=== PATIENT | female | born 1990 | race Caucasian/White ===

== ENCOUNTER 2022-08-01 21:15 | Emergency (ER) | payer OTHER, SELFPAY ==
--- NOTE | ~2022-08-01 | XR_ITS ---
EXAMINATION: XR chest 1V portable Exam Date/Time: 08/01/2022 21:35 CDT HISTORY: dyspnea AND MID TO LEFT CP X 1 HOUR/PT AND SHIELDED Comparison: 06/09/2005. RESULT: Lines, tubes, and devices: None. Lungs and pleura: Clear. Cardiomediastinal silhouette: Stable. Other: No acute osseous or upper abdominal finding. IMPRESSION: No acute cardiopulmonary process. Reviewed, dictated and finalized at location K.
[2022-08-01 21:17] VITALS: BP 127/67; PULSE 80; TEMP 36.6; O2SAT 100
--- NOTE | 2022-08-01 21:29 | ECG_ITS ---
Measurements Intervals [place] Rate: 76 P: 70 ID: 165 QRS: 60 QRSD: 93 T: 44 QT: 388 QTc: 438 Interpretive Statements SINUS RHYTHM BASELINE ARTIFACT- I, II, III, AVR, AVL, AVF, V1 NORMAL ECG NO PREVIOUS ECG AVAILABLE FOR COMPARISON Electronically Signed On 08-02-2022 6:48:21 CDT by Rome Rodriguez D.O.
[2022-08-01 21:34] VITALS: BP 127/67; PULSE 80; RESP 20; TEMP 36.6; O2SAT 100
--- NOTE | 2022-08-01 21:34 | ED.GENADULT ---
HPI - General Adult General Chief complaint: Shortness of Breath/Dyspnea Stated complaint: SOB History of Present Illness HPI narrative: Joseline is a 31 with a PMH of anxiety, depression and hypothyroidism that presented to the ED chest pain that started earlier today. It started when she was lying down and is worse with a deep breath. She has had a cough for a couple weeks and is always nauseated. However, there has been no vomiting, syncope or fevers. Related Data Home Medications Medication Instructions Recorded Confirmed [id number] 3-fat com #1 27 1 cap PO DAILY 08/01/22 08/01/22 mg-1 mg-300 mg capsule fluoxetine 40 mg capsule 40 mg PO DAILY 08/01/22 08/01/22 levothyroxine 150 mcg tablet 150 mcg PO DAILY 08/01/22 08/01/22 (Synthroid) loratadine 10 mg tablet (Claritin) 10 mg PO DAILY 08/01/22 08/01/22 Allergies Allergy/AdvReac Type Severity Reaction Status Date / Time No Known Drug Allergies Allergy Mild Unknown Verified 08/01/22 21:27 Review of Systems Review of Systems: All systems reviewed & are unremarkable except as noted in HPI and below PMFSH Past Medical History Medical History (Updated 08/01/22 @ 22:24 by Lazaro Sapp DO) Anxiety Surgical History Surgical History Hx of section x2 Family History Family History Father Family history of thyroid disease Hypertension Mother Depression Sibling Family history of diabetes mellitus in first degree relative Other Diabetes mellitus Social History Social History Smoking status: Never smoker Alcohol intake: never Exam Const: General: healthy appearing and no acute distress Nutritional Appearance: well nourished Orientation/consciousness: patient oriented x3 Limitations: no limitations HENMT: Head: normal to inspection Ears: external ears normal Face/Nose/Sinus: Normal external nose present Mouth: Yes Normal oral and palatal mucosa present Eyes: Conjunctivae: conjunctivae normal Pupils: Equal, round and reactive pupils present EOM: EOMs intact bilaterally Neck: Neck: normal visual inspection Chest: Chest palpation & inspection: normal inspection of the chest Resp: Effort & Inspection: normal respiratory effort Auscultation: clear to auscultation bilaterally Cardio: Rate: regular rate Rhythm: regular rhythm GI: Inspection: distended Skin: General skin exam: normal color Neuro: General: patient oriented x3 and moves all extremities Cranial nerves: Yes Nystagmus not present Extrem: General: normal to inspection Psych: Mental Status: mental status grossly normal Course Course Emergency Course: Ordered EKG, CXR and labs as well EKG showed NSR with a rate of 76, normal axis, no ectopy or ST elevation/depression EXAMINATION:? XR chest 1V portable Exam Date/Time:? 08/01/2022 21:35 CDT HISTORY: dyspnea AND MID TO LEFT CP X 1 HOUR/PT AND SHIELDED ? Comparison:? 06/09/2005. RESULT: Lines, tubes, and devices:? None. Lungs and pleura:? Clear. Cardiomediastinal silhouette:? Stable. Other:? No acute osseous or upper abdominal finding. IMPRESSION: No acute cardiopulmonary process. Labs largely unremarkable Vital Signs Vital signs: Vital Signs Temperature 97.8 F 08/01/22 21:17 Pulse Rate 80 08/01/22 21:17 Blood Pressure 127/67 08/01/22 21:17 Pulse Oximetry 100 08/01/22 21:17 Oxygen Delivery Room Air 08/01/22 21:17 Temperature 97.8 F 08/01/22 21:34 Pulse Rate 86 08/01/22 22:01 Respiratory Rate 18 08/01/22 22:01 Blood Pressure 125/72 08/01/22 22:01 Pulse Oximetry 100 08/01/22 22:01 Oxygen Delivery Room Air 08/01/22 22:01 Medical Decision Making Vital Signs Vital Signs: Vital Signs Temperature 97.8 F 08/01/22 21:17 Pulse Rate 80 08/01/22 21:17
[2022-08-01 21:42] VITALS: O2SAT 100
[2022-08-01 21:49] LABS: Basophils Absolute Auto 0.04 K/mm3 (0.00-0.10); Basophils Percent Auto 0.4 % (0.0-1.0); Eosinophils Percent Auto 2.8 % (1.0-6.0); Hemoglobin 10.9 g/dL (12.0-15.0); Immature Granulocyte Absolute 0.04 K/mm3 (0.00-0.00); Immature Granulocyte Percent A 0.4 % (0.0-0.0); Lymphocytes Percent Auto 16.9 % (18.0-42.0); Mean Corpuscular Hemoglobin 31.1 pg (27.0-31.0); Mean Corpuscular Volume 94.3 fL (78.0-102.0); Monocytes Absolute Auto 0.69 K/mm3 (0.10-0.90); Monocytes Percent Auto 6.5 % (2.0-11.0); Neutrophils Absolute Auto 7.8 K/mm3 (1.7-7.2); Platelet Count Result 242 K/mm3 (150-420); Red Cell Distribution Width 12.6 % (11.6-14.4); White Blood Count 10.7 K/mm3 (4.8-10.8)
[2022-08-01 21:51] VITALS: BP 111/68; PULSE 83; RESP 17; O2SAT 100
--- NOTE | 2022-08-01 21:51 | PC.NURSE ---
HIV consent form completed - MD Eve[place] informed and additional lab work ordered.
[2022-08-01 22:01] VITALS: BP 125/72; PULSE 86; RESP 18; O2SAT 100
[2022-08-01] MEDS: ACETAMINOPHEN 500 MG TABLET 1000 MG PO (22:05)
[2022-08-01] MEDS: hydrOXYzine HCL 25 MG TABLET 50 MG PO (22:06)
[2022-08-01 22:12] LABS: Alanine Aminotransferase 18 U/L (14-59); Albumin Level 2.7 g/dL (3.4-5.0); Alkaline Phosphatase 75 U/L (46-116); Anion Gap 8 mmol/L (8-16); Aspartate Amino Transferase 13 U/L (15-37); Bilirubin,Total 0.2 mg/dL (0.00-1.00); Blood Urea Nitrogen 12 mg/dL (7-18); Calcium 8.6 mg/dL (8.5-10.1); Carbon Dioxide 28 mmol/L (21-32); Chloride 103 mmol/L (98-108); Estimated CRCL calculation 148 ml/min; Estimated Glomerular Filt Rate > 60; Glucose 98 mg/dL (70-99); NT Pro B Type Natriuretic Pept 103 pg/mL (0-125); Osmolality Calculated 287 mOsm/kg (285-295); Potassium 3.5 mmol/L (3.5-5.1); Sodium 139 mmol/L (136-145); Total Protein 6.8 g/dL (6.4-8.2); Troponin I 5.1 ng/L (0.00-60.4)
[2022-08-01 22:15] LABS: HIV 1 P24 AG Negative (Negative); HIV 1/2 AB Negative (Negative)
[2022-08-01 22:33] VITALS: BP 103/65; PULSE 77; RESP 17; TEMP 36.6; O2SAT 99
== END 2022-08-01 22:40 | disposition home or self-care (01) ==
PROVIDERS: Emergency Provider Family Medicine
DX: R07.81 Pleurodynia (principal)
CPT/HCPCS: 36415; 71045; 80053; 83880; 84484; 85025; 86703; 93005; 99284; A9270

== ENCOUNTER 2022-08-19 08:51 | Outpatient (CLI) | payer OTHER, SELFPAY ==
--- NOTE | ~2022-08-19 | US_ITS ---
Pelvic ultrasound. Clinical History: Encounter for supervision of normal , second trimester Technique: Realtime transabdominal and transvaginal scanning of the pelvis was performed. Color flow Doppler and Doppler spectral analysis were performed. Findings: The uterus is anteverted, and contains an intrauterine gestation.. [place]-rump length of 5.9 cm corresponds to an estimated gestational age of 12 weeks 3 days. heart rate is 134 bpm. Neither ovary seen. No adnexal mass seen. There is no evidence of free fluid in the cul de sac. Impression: Life intrauterine gestation with estimated gestational age of 12 weeks 3 days. heart rate is 13 4 bpm. Sonographic [place] is 02/28/2023. Reviewed, dictated and finalized at location . Impression: Life intrauterine gestation with estimated gestational age of 12 weeks 3 days. heart rate is 134 bpm. Sonographic [place] is 02/28/2023.
== END 2022-08-19 08:52 | disposition home or self-care (01) ==
PROVIDERS: PCP Family Medicine; Visit Provider Registered Nurse
DX: Z34.91 Encounter for supervision of normal pregnancy, unspecified, first trimester (principal); Z3A.12 12 weeks gestation of pregnancy
CPT/HCPCS: 76801

== ENCOUNTER 2022-09-28 14:34 | Emergency (ER) | payer OTHER, SELFPAY ==
--- NOTE | ~2022-09-28 | US_ITS ---
EXAMINATION: US OB limited DATE: 09/28/2022 16:08 INDICATION: Cramping. Decreased movement. Second trimester. TECHNIQUE: Real-time ultrasound of the pelvis was performed. COMPARISON: Ultrasound 08/19/2022 FINDINGS: There is a single fetus in breech presentation. The placenta is anterior and abuts the cervix. The c ervical length is 3.8 cm on transabdominal images, which is normal. heart rate is 146 beats per minute (bpm). The amniotic fluid volume is subjectively normal. IMPRESSION: 1. Single living fetus in breech presentation. 2. Marginal placenta previa. Reviewed, dictated and finalized at location A.
[2022-09-28 15:10] VITALS: BP 135/72; PULSE 79; RESP 16; TEMP 37; O2SAT 100
--- NOTE | 2022-09-28 15:39 | ED.ABDPAIN ---
HPI - Abdominal Pain General Chief Complaint: Abdominal Pain Stated Complaint: 18 weeks cramping Time Seen by Provider: 09/28/22 15:16 History of Present Illness HPI narrative: This 31-year-old female patient who is currently 18 weeks gestation, 3 para 2 presents to the emergency room with continued complaints of low abdominal cramping that has been present for the past 2 months, however has persisted. She denies any urinary symptoms of burning, urgency, frequency or hematuria, she denies any back pain, she denies any vaginal discharge or vaginal bleeding and she has felt normal quickening up until 2 days ago and she has not felt baby move. Patient has no other symptoms to report at this time such as illness or ill contacts that she is aware of. She is taking her vitamins daily. Related Data Home Medications Medication Instructions Recorded Confirmed [id number]-czug-OV-omega 3-fat com #1 27 1 cap PO DAILY 08/01/22 09/12/22 mg-1 mg-300 mg capsule fluoxetine 40 mg capsule 40 mg PO DAILY 08/01/22 09/12/22 levothyroxine 175 mcg tablet 175 mcg PO DAILY 08/19/22 09/12/22 (Synthroid) Allergies Allergy/AdvReac Type Severity Reaction Status Date / Time No Known Drug Allergies Allergy Mild Unknown Verified 09/28/22 14:35 Review of Systems Review of Systems: See HPI All systems reviewed & are unremarkable except as noted in HPI and below PMFSH Past Medical History Medical History Acid reflux Anxiety Thyroid disorder Vaginal delivery x2 Surgical History Surgical History [place] teeth removed Family History Family History Father Family history of thyroid disease Hypertension Diabetes mellitus Mother Depression Sibling Asthma Diabetes mellitus Grandparent Rectal cancer Social History Social History Smoking status: Former smoker Tobacco type: e-cigarettes/vaping Alcohol intake: never Substance use: former Substance use type: marijuana Lack of Transportation: No Lack of Food: Never True Current Housing: I Have Housing Concerned About Future Housing: No Difficulty Paying Gas/Electric Bills: No Difficulty Paying for Meds: No Currently Unemployed: No Education: High School Diploma/GED Difficulty w/ Childcare or Family Care: No Agree to blood products: Yes Exam Const: General: healthy appearing, no acute distress and alert Nutritional Appearance: obese Orientation/consciousness: patient oriented x3 Limitations: no limitations HENMT: Head: normal to inspection Ears: external ears normal and TM's normal bilaterally Face/Nose/Sinus: Normal external nose present Mouth: Yes Normal oral and palatal mucosa present Throat: posterior oropharynx normal Eyes: Conjunctivae: conjunctivae normal Pupils: Equal, round and reactive pupils present EOM: EOMs intact bilaterally Neck: Neck: normal visual inspection and no lymphadenopathy Chest: Chest palpation & inspection: normal inspection of the chest Resp: Effort & Inspection: normal respiratory effort Auscultation: clear to auscultation bilaterally Cardio: Rate: regular rate Rhythm: regular rhythm Heart sounds: no murmurs GI: Inspection: non-distended GI Palp: Yes Soft to palpation, No Tenderness to palpation present (GI), No Guarding due to palpation present (GI) and No Rigid due to palpation Auscultation: normal bowel sounds : External Female Exam: normal external appearance Speculum Exam - Vagina: normal appearance of the vagina, normal vaginal discharge, no foreign bodies and No vaginal bleeding Speculum Exam - Cervix: normal appearance of the cervix Bimanual exam- vagina & uterus: no cervical motion tenderness Bimanual Exam- Adnexa, other: no masses, n
--- NOTE | 2022-09-28 15:49 | PC.NURSE ---
pt. in ultrasound at this time.
[2022-09-28 16:26] LABS: Basophils Percent Auto 0.4 % (0.2-1.2); Eosinophils Absolute Auto 0.2 K/mm3 (0-0.3); Eosinophils Percent Auto 1.5 % (0-4.4); Hematocrit 36.1 % (37.0-47.0); Hemoglobin 11.9 g/dL (12.0-15.0); Immature Granulocyte Absolute 0.03 K/mm3 (0.00-0.031); Immature Granulocyte Percent A 0.3 % (0-0.5); Lymphocytes Absolute Auto 1.58 K/mm3 (0.9-3.2); Lymphocytes Percent Auto 15.3 % (18.3-44.2); Mean Corpuscular Hemoglobin 30.6 pg (26-34); Mean Corpuscular Volume 92.8 fl (80-100); Mean Platelet Volume 11.7 fl (7.4-10.4); Monocytes Absolute Auto 0.6 K/mm3 (0.1-0.6); Monocytes Percent Auto 5.4 % (2.6-8.5); Neutrophils Percent Auto 77.1 % (45.5-73.1); Platelet Count Result 247 k/mm3 (150-375); Red Blood Count 3.89 M/mm3 (4.2-5.4); Red Cell Distribution Width 12.6 % (11.5-14.5); White Blood Count 10.4 K/mm3 (4.5-10.0)
[2022-09-28 16:33] LABS: Appearance Urine Clear (Clear); Bacteria Urine None Seen /hpf; Bilirubin Urine Negative (Negative); Blood Urine Negative (Negative); Color Urine Yellow (Yellow); Glucose Urine UA Negative (Negative); Ketones Urine Negative (Negative); Leukocyte Esterase Ur Trace LEU/UL (Negative); Nitrate Urine Negative (Negative); Non Pathogenic Casts 0-2; Protein Urine Negative (Negative); RBC Urine 0-2 /hpf (0-2); Specific Grav Ur 1.005 (1.001-1.035); Squamous Epithelial Cell Urine Few /hpf (Few); Urobilinogen Urine 0.2 mg/dL (<2.0); WBC Urine 0-5 /hpf; pH Urine 6.5 (5.0-9.0)
[2022-09-28 16:38] LABS: Add Urine Microscopic? YES
[2022-09-28 17:20] LABS: Alanine Aminotransferase 58 U/L (6-35); Albumin Level 3.5 g/dL (3.5-5.1); Alkaline Phosphatase 70 U/L (38-126); Anion Gap 8 mmol/L (8-16); Aspartate Amino Transferase 38 U/L (14-36); Bilirubin,Total 0.4 mg/dL (0.2-1.3); Blood Urea Nitrogen 4 mg/dL (7-17); Calcium 8.8 mg/dL (8.4-10.2); Carbon Dioxide 24 mmol/L (22-30); Chloride 102 mmol/L (98-107); Estimated CRCL calculation 251 ml/min; Estimated Glomerular Filt Rate > 60; Glucose 87 mg/dL (65-110); Potassium 3.8 mmol/L (3.4-5.0); Sodium 134 mmol/L (137-145)
[2022-09-28] MEDS: NITROFURANTOIN MONOHYD MACROCR 100 MG CAP PO (17:24)
== END 2022-09-28 17:28 | disposition home or self-care (01) ==
PROVIDERS: Emergency Provider Nurse Practitioner Adult Health; PCP Family Medicine
DX: O23.42 Unspecified infection of urinary tract in pregnancy, second trimester (principal); N39.0 Urinary tract infection, site not specified; O26.891 Other specified pregnancy related conditions, first trimester; R10.30 Lower abdominal pain, unspecified; O44.22 Partial placenta previa NOS or without hemorrhage, second trimester; O99.282 Endocrine, nutritional and metabolic diseases complicating pregnancy, second trimester; E07.9 Disorder of thyroid, unspecified; O99.612 Diseases of the digestive system complicating pregnancy, second trimester; K21.9 Gastro-esophageal reflux disease without esophagitis; O99.342 Other mental disorders complicating pregnancy, second trimester; F41.9 Anxiety disorder, unspecified; Z87.891 Personal history of nicotine dependence; Z3A.18 18 weeks gestation of pregnancy
CPT/HCPCS: 36415; 76815; 80053; 81001; 84702; 85025; 99284; A9270

== ENCOUNTER 2022-10-12 16:29 | Outpatient (CLI) | payer OTHER, SELFPAY ==
[2022-10-12 16:55] LABS: Basophils Percent Auto 0.2 % (0.2-1.2); Eosinophils Absolute Auto 0.1 K/mm3 (0-0.3); Eosinophils Percent Auto 1.3 % (0-4.4); Hematocrit 36.5 % (37.0-47.0); Immature Granulocyte Absolute 0.03 K/mm3 (0.00-0.031); Immature Granulocyte Percent A 0.3 % (0-0.5); Lymphocytes Absolute Auto 1.18 K/mm3 (0.9-3.2); Lymphocytes Percent Auto 11.1 % (18.3-44.2); Mean Corpuscular HGB Conc 32.9 g/dl (32-36); Mean Corpuscular Hemoglobin 31.2 pg (26-34); Mean Corpuscular Volume 94.8 fl (80-100); Mean Platelet Volume 11.6 fl (7.4-10.4); Monocytes Absolute Auto 0.5 K/mm3 (0.1-0.6); Monocytes Percent Auto 4.9 % (2.6-8.5); Neutrophils Absolute Auto 8.8 K/mm3 (1.3-6.7); Neutrophils Percent Auto 82.2 % (45.5-73.1); Platelet Count Result 239 k/mm3 (150-375); Red Blood Count 3.85 M/mm3 (4.2-5.4); Red Cell Distribution Width 12.6 % (11.5-14.5); White Blood Count 10.6 K/mm3 (4.5-10.0)
[2022-10-12 17:45] LABS: HIV 1/2 Ab P24 Ag Result Negative (Negative)
[2022-10-12 17:48] LABS: T4 Thyroxine > 24.90 ug/dL (5.53-11.0)
[2022-10-12 17:58] LABS: Free T4 Free Thyroxine > 6.99 ng/mL (0.78-2.19); Vitamin D 25 Hydroxy 32.1 ng/mL
[2022-10-12 18:10] LABS: Hepatitis B Surface Antigen Negative (Negative)
[2022-10-12 18:11] LABS: Hepatitis B Surface Antigen 0.07 S/C; Rubella IgG Antibody > 110.0 IU/ML
[2022-10-12 18:26] LABS: Hepatitis C Virus Antibody Negative (Negative)
[2022-10-13 10:55] LABS: Rapid Plasma Reagin Non-Reactive (NonReactive)
[2022-10-16 04:22] LABS: Hematocrit 35.8 % (35.0-45.0); Hemoglobin 12.1 g/dL (11.7-15.5); MCV 94.7 fL (80.0-100.0); RDW 12.2 % (11.0-15.0); Red Blood Cell Count 3.78 Mill/uL (3.80-5.10)
== END 2022-10-12 16:30 | disposition home or self-care (01) ==
PROVIDERS: PCP Family Medicine; Visit Provider Registered Nurse
DX: Z34.90 Encounter for supervision of normal pregnancy, unspecified, unspecified trimester (principal); Z3A.00 Weeks of gestation of pregnancy not specified
CPT/HCPCS: 36415; 82306; 83021; 84436; 84439; 84443; 85025; 86592; 86703; 86762; 86787; 86803; 86900; 86901; 87086; 87340; G0432

== ENCOUNTER 2022-10-19 14:33 | Outpatient (CLI) | payer OTHER, SELFPAY ==
--- NOTE | ~2022-10-19 | US_ITS ---
EXAMINATION: US OB /maternal detail DATE: 10/19/2022 15:25 INDICATION: survey TECHNIQUE: Multiple obstetric sonographic images performed. FINDINGS: Comparison to multiple prior studies sequentially, with oldest reviewed study dated 023. There is a single living fetus in vertex presentation. The placenta is anterior without placenta pre via. Placental margin to the cervix is 1.1 cm. Cervical length is 4.6 cm. Amniotic fluid volume is farrar bjectively normal. cardiac activity and movement is noted with a heart rate of 152 beats per minute. The following anatomy was identified as normal: 4 chamber heart 3 vessel cord cord insertion kidneys urinary bladder stomach spine diaphragm ventricles cisterna magna cerebellum The following biometric data were obtained: BPD: 50mm corresponds to gestational age 21 weeks 1 days. Head circumference: 191 mm corresponds to gestational age 21 weeks 3 days. Abdominal circumference: 165 mm corresponds to gestational age 21 weeks 4 days. Femur length: 34 mm corresponds to gestational age 20 weeks 4 days. Head circumference to abdominal circumference ratio: 1.16 (normal range for expected gestational age is 1.06-1.25). Estimated weight: 402 grams +/- 60 grams using Hadlock method 45%. IMPRESSION: 1: Single living intrauterine with an estimated gestational age of 21weeks 1days by initial ultrasound measurements, with an EDC of 02/28/2023 in vertex presentation. 2. Normal survey. Reviewed, dictated and finalized at location A. IMPRESSION: 1: Single living intrauterine with an estimated gestational age of 21 weeks 1days by initial ultrasound measurements, with an EDC of 02/28/2023 in ve rtex presentation. 2. Normal survey.
== END 2022-10-19 14:34 ==
LOC: MICIMG 14:34
PROVIDERS: PCP Registered Nurse; Visit Provider Registered Nurse
DX: Z36.89 Encounter for other specified antenatal screening (principal); Z3A.21 21 weeks gestation of pregnancy
CPT/HCPCS: 76805

== ENCOUNTER 2022-12-08 16:47 | Outpatient (CLI) | payer OTHER, SELFPAY ==
[2022-12-08 18:09] LABS: Basophils Percent Auto 0.4 % (0.2-1.2); Eosinophils Absolute Auto 0.2 K/mm3 (0-0.3); Eosinophils Percent Auto 1.5 % (0-4.4); Hematocrit 33.9 % (37.0-47.0); Hemoglobin 11.1 g/dL (12.0-15.0); Immature Granulocyte Absolute 0.05 K/mm3 (0.00-0.031); Immature Granulocyte Percent A 0.4 % (0-0.5); Lymphocytes Absolute Auto 1.47 K/mm3 (0.9-3.2); Lymphocytes Percent Auto 13.2 % (18.3-44.2); Mean Corpuscular HGB Conc 32.7 g/dl (32-36); Mean Corpuscular Hemoglobin 31.5 pg (26-34); Mean Corpuscular Volume 96.3 fl (80-100); Mean Platelet Volume 11.6 fl (7.4-10.4); Monocytes Absolute Auto 0.6 K/mm3 (0.1-0.6); Monocytes Percent Auto 5.4 % (2.6-8.5); Neutrophils Absolute Auto 8.8 K/mm3 (1.3-6.7); Neutrophils Percent Auto 79.1 % (45.5-73.1); Platelet Count Result 233 k/mm3 (150-375); Red Blood Count 3.52 M/mm3 (4.2-5.4); Red Cell Distribution Width 12.5 % (11.5-14.5); White Blood Count 11.2 K/mm3 (4.5-10.0)
[2022-12-08 18:17] LABS: Glucose 1 Hour PP 50gm Dose 128 mg/dL
== END 2022-12-08 16:48 | disposition home or self-care (01) ==
PROVIDERS: PCP Registered Nurse; Visit Provider Registered Nurse
DX: Z34.90 Encounter for supervision of normal pregnancy, unspecified, unspecified trimester (principal); Z3A.00 Weeks of gestation of pregnancy not specified; R79.89 Other specified abnormal findings of blood chemistry; R07.9 Chest pain, unspecified; Z91.89 Other specified personal risk factors, not elsewhere classified
CPT/HCPCS: 36415; 82947; 84443; 85025

== ENCOUNTER 2023-01-22 16:43 | Observation (INO) | payer OTHER, SELFPAY ==
--- NOTE | 2023-01-22 16:45 | OBADM ---
This patient, June Peewee, admitted to the OB room Labor/Delivery/Recovery 107 for observation. Patient/family oriented to hospital policies and general routines including ID bracelet, bed and alarms, visiting hours, pain management, procedures, bathroom and other care routines, personal items, smoking policy, room service/diet, and visiting hours. Patient/Family are encouraged to report perceived risks to care and to ask questions if they do not understand what they are told or what they should do.
[2023-01-22 17:16] VITALS: BP 124/66; PULSE 87
[2023-01-22 17:31] VITALS: BP 121/61; PULSE 87
[2023-01-22 17:45] VITALS: BMI 45.5
[2023-01-22 17:46] VITALS: BP 127/64; PULSE 82
[2023-01-22 18:01] VITALS: BP 127/68; PULSE 88
--- NOTE | 2023-01-31 08:38 | PM.OBTRLD ---
OB - Triage/Final Diagnosis Visit Information Reason for evaluation: other (back pain) Comments/Additional reasons for admission: I have assessed the risk for this patient, Joseline Vides, and determined that she would benefit from observation care.
== END 2023-01-22 18:17 | disposition home or self-care (01) ==
PROVIDERS: Admitting Provider Obstetrics & Gynecology Gynecology; PCP Registered Nurse; Visit Provider Obstetrics & Gynecology Gynecology
DX: O99.891 Other specified diseases and conditions complicating pregnancy (principal); M54.9 Dorsalgia, unspecified; Z3A.34 34 weeks gestation of pregnancy
CPT/HCPCS: G0378; G0379

== ENCOUNTER 2023-02-04 01:00 | Outpatient (CLI) | payer OTHER, SELFPAY ==
[2023-02-04 01:26] VITALS: BP 125/72; PULSE 89
[2023-02-04 01:30] VITALS: BP 125/75; PULSE 99
[2023-02-04 01:45] VITALS: BP 118/66; PULSE 89
[2023-02-04 02:00] VITALS: BP 120/70; PULSE 93
[2023-02-04 02:15] VITALS: BP 123/70; PULSE 97
== END 2023-02-04 02:20 | disposition home or self-care (01) ==
LOC: ANHOBOP 01:06 → ANHOBPP 01:07
PROVIDERS: PCP Family Medicine; Visit Provider Obstetrics & Gynecology Gynecology
DX: O13.9 Gestational [pregnancy-induced] hypertension without significant proteinuria, unspecified trimester (principal)
CPT/HCPCS: 99199

== ENCOUNTER 2023-02-12 16:56 | Observation (INO) | payer OTHER, SELFPAY ==
--- NOTE | 2023-02-12 19:20 | OBADM ---
This patient, June Peewee, admitted to the OB room Labor/Delivery/Recovery 105 for observation. Patient/family oriented to hospital policies and general routines including ID bracelet, bed and alarms, visiting hours, pain management, procedures, bathroom and other care routines, personal items, smoking policy, room service/diet, and visiting hours. Patient/Family are encouraged to report perceived risks to care and to ask questions if they do not understand what they are told or what they should do.
[2023-02-12 19:24] VITALS: BMI 40.6
--- NOTE | 2023-02-14 08:34 | PM.OBTRLD ---
OB - Triage/Final Diagnosis Visit Information Date of evaluation: 02/12/23 Reason for evaluation: threatened labor Comments/Additional reasons for admission: I have assessed the risk for this patient, Joseline Vides, and determined that she would benefit from observation care.
== END 2023-02-12 19:20 | disposition home or self-care (01) ==
PROVIDERS: Admitting Provider Student in an Organized Health Care Education/Training Program; PCP Family Medicine; Visit Provider Student in an Organized Health Care Education/Training Program
DX: O47.1 False labor at or after 37 completed weeks of gestation (principal); Z3A.37 37 weeks gestation of pregnancy
CPT/HCPCS: G0378; G0379

== ENCOUNTER 2023-02-15 00:07 | Observation (INO) | payer OTHER, SELFPAY ==
[2023-02-15 00:22] VITALS: BP 127/73; PULSE 100
[2023-02-15 00:31] VITALS: BP 131/54; PULSE 101
[2023-02-15 00:33] VITALS: BMI 45.9
--- NOTE | 2023-02-15 00:33 | OBADM ---
This patient, June Peewee, admitted to the OB room Labor/Delivery/Recovery 106 for observation. Patient/family oriented to hospital policies and general routines including ID bracelet, bed and alarms, visiting hours, pain management, procedures, bathroom and other care routines, personal items, smoking policy, room service/diet, and visiting hours. Patient/Family are encouraged to report perceived risks to care and to ask questions if they do not understand what they are told or what they should do.
--- NOTE | 2023-02-20 08:45 | PM.OBTRLD ---
OB - Triage/Final Diagnosis Visit Information Reason for evaluation: threatened labor Comments/Additional reasons for admission: I have assessed the risk for this patient, Joseline Vides, and determined that she would benefit from observation care.
== END 2023-02-15 02:20 | disposition home or self-care (01) ==
PROVIDERS: Admitting Provider Obstetrics & Gynecology Gynecology; PCP Family Medicine; Visit Provider Obstetrics & Gynecology Gynecology
DX: O47.1 False labor at or after 37 completed weeks of gestation (principal); Z3A.38 38 weeks gestation of pregnancy
CPT/HCPCS: G0378; G0379

== ENCOUNTER 2023-02-16 01:09 | Observation (INO) | payer OTHER, SELFPAY ==
[2023-02-16 02:02] VITALS: BP 126/71; PULSE 89
[2023-02-16 03:21] VITALS: TEMP 36.7
[2023-02-16 03:34] VITALS: BMI 45.2
--- NOTE | 2023-03-13 07:49 | PM.OBTRLD ---
OB - Triage/Final Diagnosis Visit Information Date of evaluation: 02/16/23 Reason for evaluation: threatened labor Comments/Additional reasons for admission: I have assessed the risk for this patient, Joseline Vides, and determined that she would benefit from observation care. Evaluation Comments: NST reactive. Ctx patter irregular and no cervical change from office visit. Unable to augment labor due to gestational age. DC home with labor precautions.
== END 2023-02-16 03:45 | disposition home or self-care (01) ==
PROVIDERS: Admitting Provider Obstetrics & Gynecology Gynecology; PCP Family Medicine; Visit Provider Obstetrics & Gynecology Gynecology
DX: O47.1 False labor at or after 37 completed weeks of gestation (principal); Z3A.38 38 weeks gestation of pregnancy
CPT/HCPCS: G0378; G0379

== ENCOUNTER 2023-02-18 02:09 | Observation (INO) | payer OTHER, SELFPAY ==
[2023-02-18 03:59] VITALS: BMI 44.9
[2023-02-18 04:01] VITALS: BP 113/61; PULSE 69
--- NOTE | 2023-02-18 04:07 | PC.NURSE ---
0407: Discharge instructions taken to patient. Educated patient on adequate water intake, warm baths to relieve pain, tylenol 500-1000 mg as needed and postion changes to help eleviate contraction pain. Patient was upset being told that her contraction pattern was not consistent nor adequate for cervical change and that in the 2 hours she was here that she did not make any cervical change. I educated patient on adequate contraction pattern, 3-5 minutes apart last for 60 seconds or longer for one hour. Patient was upset that she was getting discharged since this was her fourth time in the L&D unit for observation. Pt stated, I will not return for my induction on Monday because of the terrible patient care I have received and all of my friends told me not to come here to have this baby . Patient asked, How scary is GBS+ for the baby if I do not come in for my induction and have my baby at home? I have been here four different times and you all keep sending me home. It is a [address] I will not come back here to have my baby if you send me home. Patient was visibly upset and charge nurse presence was requested.
--- NOTE | 2023-02-18 04:09 | PC.NURSE ---
0409 THIS RN PRESENCE REQUESTED AT BEDSIDE. UPON ARRIVAL TO ROOM, PT VERY UPSET AND SCREAMING THAT SHE DOESN'T WANT TO TALK TO ME. SHE THINKS THIS HOSPITAL IS A DUMP AND HAS HORRIBLE RATINGS. SHE WISHED HER INSURANCE WOULD COVER HER DELIVERY ELSEWHERE. SHE'S UPSET BECAUSE SHE HAS BEEN EVALUATED IN L&D 4 TIMES AND SENT HOME. SHE IS JUST GOING TO CANCEL HER MONDAY INDUCTION AND DELIVER HER BABY AT HOME. PT WOULD NOT ALLOW ME TO SPEAK AND CONTINUED SCREAMING. PT SIGNED DISCHARGE PAPERS AND LEAVES ROOM.
--- NOTE | 2023-03-06 10:52 | PM.OBTRLD ---
OB - Triage/Final Diagnosis Visit Information Comments/Additional reasons for admission: I have assessed the risk for this patient, Joseline Vides, and determined that she would benefit from observation care. Final Diagnosis (1) contractions: Code(s): O47.00 - False labor before 37 completed weeks of gestation, unspecified trimester Status: Acute
== END 2023-02-18 04:20 | disposition home or self-care (01) ==
PROVIDERS: Admitting Provider Obstetrics & Gynecology; PCP Family Medicine; Visit Provider Obstetrics & Gynecology
DX: O47.03 False labor before 37 completed weeks of gestation, third trimester (principal); Z3A.38 38 weeks gestation of pregnancy
CPT/HCPCS: G0378; G0379

== ENCOUNTER 2023-03-15 10:02 | Outpatient (CLI) | payer OTHER, SELFPAY ==
--- NOTE | 2023-04-04 18:54 | WPDSLEEPSTUD ---
Sleep Study Date of Study: 03/15/23 Ordering Provider: Norman Purvis APRN Interpreting Physician: Melanie Fine DO Sleep Study Type: Polysomnogram Height: 1.78 m Weight: 129.274 kg Body Mass Index: 40.8 Neck Circumference (inches): 15 [place]: 12 Reason for Sleep Study Loud snoring, witnessed apneas Sleep History The patient is a 32-year-old female with anxiety, depression, GERD, iron deficiency anemia, hypothyroidism, ADD, seasonal allergies and history of tobacco use that had a sleep study ordered by the pulmonary group for evaluation of sleep apnea. The patient frequently awakens from sleep short of breath. She constantly awakens at night with heartburn, belching or cough. She constantly snores loudly enough that others complain. She constantly has trouble sleeping when she has a cold. She frequently wakes up gasping for air throughout the night. She constantly has breathing problems at night observed by herself or others. She rarely sweats excessively at night. She frequently has heart palpitations or irregular heartbeats during the night. She frequently falls asleep during the day but never while driving. She occasionally experiences loss of muscle tone when extremely emotional. She constantly has trouble at school or work due to sleepiness. She denies feeling unable to move 1 waking up or falling asleep. She constantly experiences vivid dreamlike scenes upon awakening or falling asleep. She denies feeling afraid of going to sleep. She occasionally has nightmares and occasionally remembers her dreams. She constantly has thoughts racing through her mind. She constantly feels sad, depressed and anxious. She denies having muscular tension. She frequently notices parts of her body jerk. She denies kicking during the night. She rarely has crawling and aching feelings in her legs but denies having leg pain during the. She denies grinding her teeth during sleep. She rarely awakens with morning jaw pain. She is rarely bothered by pain during the day and rarely awakened by pain during the night. She frequently wakes up feeling stiff in the morning. She occasionally wakes up with sore or achy muscles. She frequently wakes up with pain in the neck, spine and other joints. She goes to bed between 2-3 a.m. on both weekdays and weekends. She is able to fall asleep relatively quickly. She wakes up 2-3 times throughout the night for unknown reasons and will play on her phone until she is able to fall asleep within 30-60 minutes. She wakes up at 7:00 a.m. on weekdays and between 7-9 a.m. on the weekends. She typically gets 6-8 hours of sleep per night. She will stay in bed for 1 hour after waking up in the morning. She currently lives with her boyfriend and 3 children. She will consume caffeinated beverages within 2 hours of bedtime. She denies engaging in physical exercise before bedtime. She will read before falling asleep. She denies watching television before falling asleep. She will take naps in the afternoon or the evening but they are not refreshing. She consumes 3 caffeinated beverages per day. She is a former smoker. She denies alcohol use. She does admit to using marijuana. [facility] Past Medical History Medical History Acid reflux Anxiety Depression Thyroid disorder Vaginal delivery x2 Surgical History Surgical History [place] teeth removed Family History Family History Father Family history of thyroid disease Hypertension Diabetes mellitus Mother Depression Sibling Asthma Diabetes mellitus Grandparent Rectal cancer Social History Social History Smoking status: Former smoker Tobacco type: e-cigarettes/vaping Alcohol intake: never Substance use: forme
[2023-04-04 18:59] VITALS: BMI 40.8
== END 2023-03-16 07:07 | disposition home or self-care (01) ==
LOC: ANHCSM 10:03
PROVIDERS: PCP Family Medicine; Visit Provider Nurse Practitioner Family
DX: G47.30 Sleep apnea, unspecified (principal); G47.10 Hypersomnia, unspecified; R06.83 Snoring; Z72.821 Inadequate sleep hygiene
CPT/HCPCS: 95810

== ENCOUNTER 2023-03-19 20:35 | Emergency (ER) | payer OTHER, SELFPAY ==
[2023-03-19 20:35] VITALS: BP 127/67; PULSE 83; RESP 20; TEMP 37.1; O2SAT 97
--- NOTE | 2023-03-19 20:38 | ED.URI ---
HPI - URI/Sore Throat General Chief Complaint: Upper Respiratory Infection Stated Complaint: cough Time Seen by Provider: 03/19/23 20:36 Source: patient Mode of arrival: ambulatory Limitations: no limitations History of Present Illness HPI Narrative: patient is a 32-year-old female with a cough and chest congestion for 4 days. She is having yellow sputum. She tested negative for triple screen 2 days ago At urgent care. She is 1 month. MD elicited complaint: cough, rhinorrhea and nasal congestion Onset (ago): day(s) (4) Consistency: constant Severity: moderate Description of mucous: yellow Able to tolerate fluids by mouth: Yes Exacerbating factors: nothing Relieving factors: nothing Associated symptoms: nasal congestion Treatments prior to arrival: none Related Data Home Medications Medication Instructions Recorded Confirmed [id number] 3-fat com #1 27 1 cap PO DAILY 08/01/22 03/19/23 mg-1 mg-300 mg capsule desvenlafaxine succinate 25 mg 25 mg PO DAILY 01/27/23 03/19/23 tablet,extended release 24 hr (Pristiq) levothyroxine 150 mcg tablet 150 mcg PO DAILY 03/19/23 03/19/23 levothyroxine 200 mcg tablet See Rx Instructions .Route .COMPLEX 03/19/23 03/19/23 methylphenidate HCl 27 mg 27 mg PO DAILY 03/19/23 03/19/23 tablet,extended release 24 hr (Concerta) Allergies Allergy/AdvReac Type Severity Reaction Status Date / Time No Known Drug Allergies Allergy Mild Unknown Verified 01/27/23 09:01 Review of Systems Review of Systems: All systems reviewed & are unremarkable except as noted in HPI and below Constitutional: Constitutional: Reports no additional constitutional complaints Eyes: Eyes: Reports no additional eye complaints ENT: Reports system reviewed and no additional complaints, except as documented Cardiovascular: Cardiovascular: Reports no additional cardiovascular complaints Respiratory: Respiratory: Reports no additional respiratory complaints Gastrointestinal: Gastrointestinal: Reports no additional gastrointestinal complaints Genitourinary: Genitourinary: Reports no additional female genitourinary complaints Musculoskeletal: Musculoskeletal: Reports no additional musculoskeletal complaints Integumentary/Breasts: Skin/Breast: Reports system reviewed and no additional complaints, except as docu Neurologic: Reports system reviewed and no additional complaints, except as documented Psychiatric: Psychiatric: Reports no additional psychiatric complaints Endocrine: Endocrine: Reports no additional endocrine complaints Hematologic/Lymphatic: Hematologic/Lymphatic: Reports no additional hematologic/lymphatic complaints Allergic/Immunologic: Allergic/Immunologic: Reports no additional allergic/immunologic complaints PMFSH Past Medical History Medical History Acid reflux Anxiety Depression Thyroid disorder Vaginal delivery x2 Surgical History Surgical History [place] teeth removed Family History Family History Father Family history of thyroid disease Hypertension Diabetes mellitus Mother Depression Sibling Asthma Diabetes mellitus Grandparent Rectal cancer Social History Social History Smoking status: Former smoker Tobacco type: e-cigarettes/vaping Alcohol intake: never Substance use: former Substance use type: marijuana Lack of Transportation: No Lack of Food: Never True Current Housing: I Have Housing Concerned About Future Housing: No Difficulty Paying Gas/Electric Bills: No Difficulty Paying for Meds: No Currently Unemployed: No Education: High School Diploma/GED Difficulty w/ Childcare or Family Care: No Living arrangements: with family Occupation/Education: occupation Gender identity (if
[2023-03-19 21:36] LABS: SARS-CoV-2 RNA PCR Negative (Negative)
[2023-03-19 21:45] LABS: Influenza A QL RT-PCR Negative (Negative); Influenza B QL RT-PCR Negative (Negative); RSV RNA, RT-PCR Negative (Negative)
[2023-03-19] MEDS: BENZONATATE 100 MG CAPSULE 200 MG PO (21:58)
[2023-03-19] MEDS: AMOXICILLIN/CLAVULANATE K 500-125 MG TAB 1 TABLET PO (21:58)
[2023-03-19 22:05] VITALS: BP 123/70; PULSE 78; RESP 20; TEMP 37.1; O2SAT 98
== END 2023-03-19 22:07 | disposition home or self-care (01) ==
PROVIDERS: Emergency Provider Emergency Medicine; PCP Family Medicine
DX: J40 Bronchitis, not specified as acute or chronic (principal); Z20.822 Contact with and (suspected) exposure to COVID-19; Z79.899 Other long term (current) drug therapy; Z87.891 Personal history of nicotine dependence
CPT/HCPCS: 87637; 99283; A9270

== ENCOUNTER 2023-08-10 21:45 | Emergency (ER) | payer OTHER, SELFPAY ==
[2023-08-10 21:48] VITALS: BP 122/70; PULSE 109; RESP 18; TEMP 36.3; O2SAT 99
--- NOTE | 2023-08-10 21:57 | ED.EAR ---
HPI - Ear Problem General Chief complaint: Ear Stated complaint: ear pressure Source: patient Mode of arrival: ambulatory Limitations: no limitations History of Present Illness HPI Narrative: This is a 32-year-old female with bilateral ear fullness right greater than left with sinus congestion and pressure with some no fever chills no shortness of breath. Symptoms for the last 2 weeks with postnasal drip with no sore throat no nausea vomiting. MD Complaint: ear pain Location: bilateral Duration: constant Severity: mild Relieving factors: nothing Exacerbating factors: nothing Related Data Home Medications Medication Instructions Recorded Confirmed desvenlafaxine succinate 25 mg 25 mg PO DAILY 01/27/23 08/10/23 tablet,extended release 24 hr (Pristiq) methylphenidate HCl 27 mg 27 mg PO DAILY 03/19/23 08/10/23 tablet,extended release 24 hr (Concerta) Allergies Allergy/AdvReac Type Severity Reaction Status Date / Time No Known Drug Allergies Allergy Mild Unknown Verified 08/10/23 21:50 Review of Systems Review of Systems: All systems reviewed & are unremarkable except as noted in HPI and below PMFSH Past Medical History Medical History Acid reflux Anxiety Depression Thyroid disorder Vaginal delivery x2 Surgical History Surgical History [place] teeth removed Family History Family History Father Family history of thyroid disease Hypertension Diabetes mellitus Mother Depression Sibling Asthma Diabetes mellitus Grandparent Rectal cancer Social History Social History Smoking status: Former smoker Tobacco type: e-cigarettes/vaping Alcohol intake: never Substance use: former Substance use type: marijuana Lack of Transportation: No Lack of Food: Never True Current Housing: I Have Housing Concerned About Future Housing: No Difficulty Paying Gas/Electric Bills: No Difficulty Paying for Meds: No Currently Unemployed: No Education: High School Diploma/GED Difficulty w/ Childcare or Family Care: No Living arrangements: with family Occupation/Education: occupation Gender identity (if verbalized by the patient): Female Sexual Orientation (if Verbalized by the Patient): Straight or Heterosexual Spiritual care concerns: No Agree to blood products: Yes Exam Const: General: healthy appearing Nutritional Appearance: well nourished Orientation/consciousness: patient oriented x3 Limitations: no limitations HENMT: Face and sinus: sinus tenderness Other: Bilateral ear dullness with some bilateral nasal turbinate erythema and congestion with maxillary sinus tenderness with palpation Eyes: Conjunctivae: conjunctivae normal Neck: Neck: normal visual inspection, no lymphadenopathy and no meningeal signs Chest: Chest palpation & inspection: normal inspection of the chest Resp: Effort & Inspection: normal respiratory effort Auscultation: clear to auscultation bilaterally Cardio: Rate: regular rate Rhythm: regular rhythm Course Course Emergency Course: advised medication for sinus pressure and infection. Vital Signs Vital signs: Vital Signs Temperature 36.3 C L 08/10/23 21:48 Pulse Rate 109 H 08/10/23 21:48 Respiratory Rate 18 08/10/23 21:48 Blood Pressure 122/70 08/10/23 21:48 Pulse Oximetry 99 08/10/23 21:48 Oxygen Delivery Room Air 08/10/23 21:48 Temperature 36.3 C L 08/10/23 21:48 Pulse Rate 109 H 08/10/23 21:48 Respiratory Rate 18 08/10/23 21:48 Blood Pressure 122/70 08/10/23 21:48 Pulse Oximetry 99 08/10/23 21:48 Oxygen Delivery Room Air 08/10/23 21:48 Medical Decision Making Vital Signs Vital Signs: Vital Signs Temperature 36.3 C L 08/10/23 21:
== END 2023-08-10 22:08 | disposition home or self-care (01) ==
PROVIDERS: Emergency Provider Emergency Medicine; PCP Family Medicine
DX: J01.00 Acute maxillary sinusitis, unspecified (principal); F41.9 Anxiety disorder, unspecified; F32.A Depression, unspecified; Z87.891 Personal history of nicotine dependence
CPT/HCPCS: 99283

== ENCOUNTER 2023-09-22 14:52 | Outpatient (CLI) | payer OTHER, SELFPAY ==
[2023-09-22 15:04] LABS: Basophils Absolute Auto 0.04 K/mm3 (0.00-0.10); Basophils Percent Auto 0.4 % (0.0-1.0); Eosinophils Absolute Auto 0.19 K/mm3 (0.02-0.50); Eosinophils Percent Auto 2.1 % (1.0-6.0); Hematocrit 35.5 % (35.0-49.0); Hemoglobin 11.4 g/dL (12.0-15.0); Immature Granulocyte Absolute 0.04 K/mm3 (0.00-0.00); Immature Granulocyte Percent A 0.4 % (0.0-0.0); Immature Reticulocyte Fraction 10.8 % (2.0-16.52); Lymphocytes Absolute Auto 1.07 K/mm3 (1.10-4.50); Lymphocytes Percent Auto 11.6 % (18.0-42.0); Mean Corpuscular HGB Conc 32.1 g/dL (32-36); Mean Corpuscular Volume 90.3 fL (78.0-102.0); Mean Platelet Volume 10.7 fl (9.2-11.8); Monocytes Percent Auto 6.5 % (2.0-11.0); Neutrophils Absolute Auto 7.26 K/mm3 (1.70-7.20); Platelet Count Result 268 K/mm3 (150-420); Red Blood Count 3.93 M/mm3 (4.20-5.40); Red Cell Distribution Width 13.2 % (11.6-14.4); Reticulocyte Percent 1.32 % (0.50-1.50); Reticulocytes Absolute 0.05 M/mm3 (0.02-0.10); White Blood Count 9.2 K/mm3 (4.8-10.8)
== END 2023-09-22 14:53 | disposition home or self-care (01) ==
PROVIDERS: PCP Family Medicine; Visit Provider Family Medicine
DX: E61.1 Iron deficiency (principal); J02.0 Streptococcal pharyngitis
CPT/HCPCS: 36415; 85025; 85046

== ENCOUNTER 2023-10-02 13:18 | Outpatient (CLI) | payer OTHER, SELFPAY ==
--- NOTE | ~2023-10-02 | US_ITS ---
EXAMINATION: US thyroid DATE: 10/02/2023 13:41 INDICATION: Goiter. Thyroid nodule. TECHNIQUE: Multiple ultrasound images of the thyroid were obtained. COMPARISON: None. FINDINGS: The right thyroid lobe measures 6.1 x 2.1 x 2.4 cm. The left thyroid lobe measures 5.4 x 2.6 x 2.0 c m. The thyroid is diffusely hypoechoic and heterogeneous. Vascularity is increased. No discrete nodu le. IMPRESSION: 1. Heterogeneous, hypervascular thyroid, likely chronic lymphocytic ([place]iz[place]) thyroiditis. Reviewed, dictated and finalized at location E.
== END 2023-10-02 13:19 | disposition home or self-care (01) ==
PROVIDERS: PCP Family Medicine; Visit Provider Internal Medicine
DX: E03.9 Hypothyroidism, unspecified (principal)
CPT/HCPCS: 76536

== ENCOUNTER 2024-03-25 14:40 | Outpatient (CLI) | payer OTHER, SELFPAY ==
[2024-03-25 15:57] LABS: Alanine Aminotransferase 23 U/L (14-59); Albumin Level 3.4 g/dL (3.4-5.0); Alkaline Phosphatase 64 U/L (46-116); Anion Gap 4 mmol/L (4-12); Aspartate Amino Transferase < 10 U/L (15-37); Bilirubin,Total 0.3 mg/dL (0.00-1.00); Blood Urea Nitrogen 13 mg/dL (7-18); Calcium 8.8 mg/dL (8.5-10.1); Carbon Dioxide 31 mmol/L (21-32); Chloride 104 mmol/L (98-108); Estimated Glomerular Filt Rate > 60; Free T4 Free Thyroxine 7.42 ng/dL (0.76-1.46); Glucose 90 mg/dL (70-99); Osmolality Calculated 288 mOsm/kg (285-295); Potassium 4.8 mmol/L (3.5-5.1); Sodium 139 mmol/L (136-145); Total Protein 6.7 g/dL (6.4-8.2); Vitamin B12 494 pg/mL (193-986)
[2024-03-27 02:43] LABS: Vitamin D 25 Hydroxy 31 ng/mL (30-100)
== END 2024-03-25 14:41 | disposition home or self-care (01) ==
LOC: CHSLAB 14:42
PROVIDERS: PCP Family Medicine; Visit Provider Internal Medicine
DX: E03.9 Hypothyroidism, unspecified (principal)
CPT/HCPCS: 36415; 80053; 82306; 82607; 84439; 84443

== ENCOUNTER 2024-03-28 07:22 | Outpatient (CLI) | payer OTHER, SELFPAY | END 2024-03-28 07:23 | disposition home or self-care (01) | PROVIDERS: PCP Family Medicine; Visit Provider Internal Medicine | DX: E03.9 Hypothyroidism, unspecified (principal) | CPT/HCPCS: 82530 ==

== ENCOUNTER 2024-04-01 15:15 | Outpatient (CLI) | payer OTHER, SELFPAY | END 2024-04-01 15:16 | disposition home or self-care (01) | PROVIDERS: PCP Family Medicine; Visit Provider Internal Medicine | DX: E03.9 Hypothyroidism, unspecified (principal) | CPT/HCPCS: 82530 ==

== ENCOUNTER 2024-09-13 17:12 | Outpatient (CLI) | payer OTHER, SELFPAY ==
[2024-09-13 17:55] LABS: Cholesterol 139 mg/dL (0-200); HDL Direct 44 mg/dL; LDL Cholesterol Calculated 77 mg/dL (<130); Triglycerides 90 mg/dL (<150)
[2024-09-13 18:13] LABS: Free T4 Free Thyroxine > 6.99 ng/dL (0.78-2.19); Vitamin D 25 Hydroxy 23.8 ng/mL
== END 2024-09-13 17:13 | disposition home or self-care (01) ==
LOC: CHSLAB 17:13
PROVIDERS: PCP Family Medicine; Visit Provider Internal Medicine
DX: R09.89 Other specified symptoms and signs involving the circulatory and respiratory systems (principal); O47.00 False labor before 37 completed weeks of gestation, unspecified trimester; N89.8 Other specified noninflammatory disorders of vagina; J31.0 Chronic rhinitis; Z72.821 Inadequate sleep hygiene; G47.10 Hypersomnia, unspecified; R06.83 Snoring; F32.A Depression, unspecified; E03.9 Hypothyroidism, unspecified; F41.9 Anxiety disorder, unspecified
CPT/HCPCS: 36415; 80061; 82306; 82607; 83519; 84439; 84443; 84445

== ENCOUNTER 2024-10-14 17:14 | Outpatient (CLI) | payer OTHER, SELFPAY ==
--- OUTSIDE RECORDS SUMMARY | 2024-10-14 17:20 | XMS_ITS | Continuity of Care Document ---
Author Organization [facility] Address [address] [facility] [place] [address] Phone Care Team Providers Care Chiropractic Practice Manager Name Role Phone Reji Betts MD Unavailable Unavailable Allergies, Adverse Reactions, Alerts Substance Reaction Status Criticality No Known Allergies Active No Inform ation Medications Medication Instructions Dosage Effective Dates (start - stop) Status Comments Synthroid 50 mcg tablet take 1 tablet (50MCG) by oral route every day 50 MCG - Active Vitamin D2 50,000 unit capsule take 1 capsule ([id number]) by oral route every week - Active Minocin 50 mg capsule take 1 Capsule (50 MG) by oral route every day 50 MG - Active Procedures Procedure Date OFFICE/OUTPATIENT VISIT, EST PREV VISIT, NEW, AGE 18-39 OFFICE/OUTPATIENT VISIT, NEW Advance Directives Directive Yes / No Effective Date File Name No Information Encounters Encounter Description Practice Location Reason(s) For Visit Diagnoses Date Provider Providers Copied on Encounter OFFICE/OUTPA TIENT VISIT, EST [facility], [address] [place] [address], [id number], tel:[phone] [facility] Hypothyroidism (chief complaint)TG (chief complaint)Vitam in d (chief complaint) Dietary surveillance and counselingHypo thyroidismUnsp ecified vitamin d deficiencyOthe r and unspecified hyperlipidemia 3 Alpesh Mendoza. [address] [facility] [place], [id number] , [place]. tel:[phone] Referring Provider: Reji Betts, [address] [place], [place], [id number]. tel:[phone] PREV VISIT, NEW, AGE 18-39 [facility], [address], [place], [place], [id number], [place] tel:[phone] [facility] PHysical (chief complaint)acne (chief complaint) Dietary surveillance and counselingRout ine Medical ExamHypothyroi dismFatigue / MalaiseOther acneRoutine Medical Exam 3201 3 Alpesh Mendoza. [address], [place], [place], [id number] , [place]. tel:[phone] Family History Family Member Type Diagnosis Age At Onset Brother Problem (finding) Asthma Father Problem (finding) Hypertension Father Problem (finding) hypothyroidism Sister Problem (finding) Diabetes mellitus Mother Problem (finding) fibromyalgia, RLS. GERD Payers Payer name Insurance type Covered green party ID Authoriza tion(s) No Information Social History Type Description Quantity Date Captured Comments Alcohol Use Details Caffeine Use Details Unknown Tobacco Use Status No Information Smoking Status Former smoker Sex Female Vital Signs Date / Time: Height Weight BMI Pulse Rate Blood Pressure Temperature Respiratory Rate Body Surface Area Head Circumference BMI percentile Pulse Ox Inhaled Ox 12:43 PM 70.00 in 303.00 lbs 43.4 7 kg/m eter (2) 81 /min 115/80 mm[Hg] 98.1 F 16 /min Chief Complaint And Reason For Visit From encounter dated '03/26/2013 10:45'. Hypothyroidism (chief complaint) TG (chief complaint) Vitamin d (chief complaint) Plan Of Treatment Date Type Action Status No Information History Of Present Illness Encounter Date Complaint History Of Prese nt Illness No Information Instructions Date Instruction Additional Infor mation Dietary counseling Related to Di etary surveillance counseling Decrease caloric intake Related to Dietary surveillance counseling Dietary counseling Related to Di etary surveillance counseling Decrease caloric intake Related to Dietary surveillance counseling Assessments Type Assessment Date No Information Mental Status Date Cognitive Assessment Orientation - [place] ed to time, place, person, situation.
--- OUTSIDE RECORDS SUMMARY | 2024-10-14 17:21 | XMS_ITS | Patient Health Record ---
Author Organization [facility] Address [address] [place] [address] Care Team Providers Care Customer Resolution Specialist Name Role Phone Rainer Canela Primary Care Provider [phone] Results Component Value Reference Range Notes X ray : Dental, PA - First Reviewed date:12/18/2023 08:40:26 AM Interpretation: Performing Lab: Notes/Report: Reason For Referral No Information Medications Medication SIG (Take, Route, Frequency, Duration) Notes Start Date End Date Status OXcarbazepine Active Ativan Active Pristiq Active Concerta Active Vyvanse Active Social History Tobacco Use: Social History Observation Description Date Details (start date - stop date) Never Smoker NA - NA Tobacco Control (Standard) Question Answer Notes Tobacco use: Nonsmoker Vital Signs Blood pressure diastolic 73 mm Hg 12/18/2023 Blood pressure systolic 117 mm Hg 12/18/2023 Encounters Encounter Location Date Provider Diagnosis [address] [place] [address] 12/18/2023 Rainer Hilton Dental examination Z01.20 and Caries K02.9 Assessments Encounter Date Diagnosis (ICD Code) Assessment Notes Treatment Notes Treatment Clinical Notes Section Notes 12/18/2023 Caries (ICD-10 - K02.9) 12/18/2023 Dental examination (ICD-10 - Z01.20) Plan Of Treatment No Information Insurance Providers Payer Name Payer Address Payer Phone Subscriber Number Group Number Insured Name Patient Relationship to Insured Coverage Start Date Coverage End Date [employer] [address] [address] [place] [address] [id number] June Self - patient is the insured
== END 2024-10-14 17:15 | disposition home or self-care (01) ==
LOC: CHSLAB 17:18
PROVIDERS: PCP Family Medicine; Visit Provider Internal Medicine
DX: F41.9 Anxiety disorder, unspecified (principal); F32.A Depression, unspecified; G47.10 Hypersomnia, unspecified; E03.9 Hypothyroidism, unspecified; R06.81 Apnea, not elsewhere classified; Z72.821 Inadequate sleep hygiene
CPT/HCPCS: 86376

== ENCOUNTER 2024-12-20 11:23 | Outpatient (CLI) | payer OTHER, SELFPAY ==
--- OUTSIDE RECORDS SUMMARY | 2024-12-20 11:27 | XMS_ITS | Patient Health Record ---
Author Organization [facility] Address [address] [place] [address] Care Team Providers Care Facilities Technician Name Role Phone Hilton Rainer Primary Care Provider Reason For Referral No Information Medications Medication SIG (Take, Route, Frequency, Duration) Notes Start Date End Date Status OXcarbazepine Active Ativan Active Pristiq Active Concerta Active Vyvanse Active Social History Tobacco Use: Social History Observation Description Date Details (start date - stop date) Never Smoker NA - NA Tobacco Control (Standard) Question Answer Notes Tobacco use: Nonsmoker Plan Of Treatment No Information Insurance Providers Payer Name Payer Address Payer Phone Subscriber Number Group Number Insured Name Patient Relationship to Insured Coverage Start Date Coverage End Date [employer] [address] [address] [place] [address] [id number] June Self - patient is the insured
[2024-12-20 12:06] LABS: Strep Group A RT-PCR NOT DETECTED (Negative)
[2024-12-20 12:17] LABS: Influenza A QL RT-PCR Negative (Negative); Influenza B QL RT-PCR Negative (Negative); RSV RNA, RT-PCR Negative (Negative); SARS-CoV-2 RNA PCR Negative (Negative)
== END 2024-12-20 11:24 | disposition home or self-care (01) ==
PROVIDERS: PCP Family Medicine; Visit Provider Family Medicine
DX: J06.9 Acute upper respiratory infection, unspecified (principal)
CPT/HCPCS: 87637; 87651; 87798

== ENCOUNTER 2025-02-12 12:51 | Outpatient (CLI) | payer OTHER, SELFPAY ==
[2025-02-12 13:47] LABS: Free T4 Free Thyroxine 5.94 ng/dL (0.78-2.19)
[2025-02-12 14:47] LABS: Thyroid Stimulating Hormone 2.680 uIU/mL (0.465-4.680)
== END 2025-02-12 12:52 | disposition home or self-care (01) ==
LOC: CHSLAB 12:54
PROVIDERS: PCP Family Medicine; Visit Provider Internal Medicine
DX: E03.9 Hypothyroidism, unspecified (principal); R06.83 Snoring; G47.10 Hypersomnia, unspecified; Z72.821 Inadequate sleep hygiene
CPT/HCPCS: 36415; 84439; 84443; 84480

== ENCOUNTER 2025-02-22 14:15 | Outpatient (CLI) | payer OTHER, SELFPAY ==
--- OUTSIDE RECORDS SUMMARY | 2025-02-22 14:20 | XMS_ITS | Patient Health Record ---
Author Organization [facility] Address [address] [place] [address] Care Team Providers Care Office Machine Service Supervisor Name Role Phone Hilton Rainer Primary Care Provider [phone] Reason For Referral No Information Medications Medication SIG (Take, Route, Frequency, Duration) Notes Start Date End Date Status OXcarbazepine Active Ativan Active Pristiq Active Concerta Active Vyvanse Active Social History Tobacco Use: Social History Observation Description Date Details (start date - stop date) Never Smoker NA - NA Social History Tobacco Use: Social Info Question Answer Notes Tobacco Control (Standard) Tobacco use: Nonsmoker Plan Of Treatment No Information Insurance Providers Payer Name Payer Address Payer Phone Subscriber Number Group Number Insured Name Patient Relationship to Insured Coverage Start Date Coverage End Date [employer] [address] [address] [place] [phone] [id number] June Self - patient is the insured
--- OUTSIDE RECORDS SUMMARY | 2025-02-22 14:20 | XMS_ITS ---
Author Organization Unknown Address [address] [place] [phone] Phone Care Team Providers Care Radio Communication Coordinator Name Role Phone ARMOND GONZALEZ Attending Unavailable VALDEMAR TERRY Primary Unavailable Results OD [id number] - Collect Date/Time: 10/01/2024 20:17 [facility] ID: [id number] [place] [address], [phone] LOINC: Test Value Unit Reference Range Code Code System Flag ACETAMINOPHEN < 10 ug/dL L=0 H=10 3298-7 LOINC SALICYLATE < 1 mg/dL L=0 H=5 4024-6 LOINC ALCOHOL < 10.00 mg/dL L=0.00 H=50.00 5643-2 LOINC BASIC METABOLIC PANEL - Nae ect Date/Time: 10/01/2024 20:17 [facility] ID: [id number] [place] [address], [phone] LOINC: 09774-9 Test Value Unit Reference Range Code Code System Flag FASTING UNKNOWN BUN 14 mg/dL L=7 H=20 3094-0 LOINC CREATININE 0.70 mg/dL L=0.52 H=1.04 2160-0 LOINC GLUCOSE 99 mg/dL L=74 H=106 2345-7 LOINC CALCIUM 9.0 mg/dL L=8.3 H=10.5 92227-8 LOINC SODIUM 139 mmol/L L=132 H=144 2951-2 LOINC POTASSIUM 4.1 mmol/L L=3.5 H=5.1 2823-3 LOINC CHLORIDE 104 mmol/L L=98 H=107 2075-0 LOINC CO2 28.0 mmol/L L=22.0 H=30.0 8-9 LOINC ANION GAP 11 L=10 H=20 19683-1 LOINC OSMOLALITY 289 mOs/kG L=280 H=296 76250-5 LOINC BUN/CREAT 20.0 3097-3 LOINC AGE 33 62133-3 LOINC eGFR NON-AFR 101 ml/min eGFR AFR AMER 122 ml/min CBC W/ DIFF - Collect Date/T leela: 10/01/2024 20:17 [facility] ID: [id number] [address] [place], [place], [phone] LOINC: 66161-6 Test Value Unit Reference Range Code Code System Flag WBC 7.2 10^3uL L=4.8 H=10.8 RBC 4.14 10^6uL L=4.20 H=5.40 L HEMOGLOBIN 12.2 g/dL L=12.0 H=16.0 718-7 LOINC HEMATOCRIT 37.8 VOL% L=37.0 H=47.0 4544-3 LOINC MCV 91.3 fL L=81.0 H=99.0 MCH 29.5 pg L=27.0 H=32.0 MCHC 32.3 g/dL L=32.0 H=36.0 PLATELETS 250 10^3uL L=100 H=400 00794-1 LOINC RDW 12.5 % L=11.7 H=15.5 %GRAN 79.5 % L=40.0 H=70.0 05088-5 LOINC H %LYMPH 14.6 % L=20.0 H=45.0 736-9 LOINC L %MONO 5.6 % L=2.0 H=10.0 87542-0 LOINC %EOS 0.0 % L=0.0 H=6.0 713-8 LOINC %BASO 0.0 % L=0.0 H=3.0 706-2 LOINC #NEUT 5.7 10^3uL L=1.9 H=7.6 56667-4 LOINC #LYMPH 1.1 10^3uL L=0.9 H=4.9 73020-5 LOINC #MONO 0.4 10^3uL L=0.1 H=0.9 93846-2 LOINC #EOS 0.0 10^3uL L=0.0 H=0.6 712-0 LOINC #BASO 0.00 10^3uL L=0.00 H=0.10 89312-6 LOINC #IM GRANS 0.0 10^3uL L=0.0 H=7.0 54302-7 LOINC %IM GRANS 0.3 % L=0.0 H=5.0 17169-7 LOINC %NRB 0.0 L=0.0 H=0.2 71913-1 LOINC #NRB 0.000 L=0.000 H=0.012 81940-8 LOINC MANUAL DIFF NOT INDICATED RBC MORPH NOT INDICATED LIVER PROFILE - Collect Date /Time: 10/01/2024 20:17 [facility] ID: [id number] [address] [place], [place], [phone] LOINC: 20854-1 Test Value Unit Reference Range Code Code System Flag ALT 17 U/L L=9 H=72 1742-6 LOINC AST 19 U/L L=15 H=46 1920-8 LOINC ALKALINE PHOS 66 U/L L=38 H=126 6768-6 LOINC TOTAL PROTEIN 7.7 g/L L=6.3 H=8.2 2885-2 LOINC TOTAL BILI 0.2 mg/dL L=0.2 H=1.3 1975-2 LOINC DIRECT BILI 0.0 mg/dL L=0.0 H=0.3 1967-7 LOINC INDIRECT BILI 0.10 mg/dL L=0.00 H=1.10 1971-1 LOINC ALBUMIN 4.0 G/dL L=3.5 H=5.0 1751-7 LOINC TSH - Collect Date/Time: 10/2024 20:17 [facility] ID: [id number] [address] [place] [address], [phone] LOINC: 33699-6 Test Value Unit Reference Range Code Code System Flag TSH. 0.868 uIU/L L=0.470 H=4.680 54992-7 LOINC MAGNESIUM - Collect Date/Jag e: 10/01/2024 20:17 [facility] ID: [id number] [address] [place] [address], [phone] LOINC: 89904-3 Test Value Unit Reference Range Code Code System Flag MAGNESIUM 2.0 mg/dL L=1.6 H=2.3 22784-8 LOINC SARS COV2 PCR - Collect Date /Time: 10/01/2024 20:01 [facility] ID: [id number] [address] [place] [address], [phone] LOINC: 65512-0 Test Value Unit Reference Range Code Code System Flag SARS COV2 PCR NEGATIVE 90964-8 LOINC SENT TO IFC RN? NO URINALYSIS w/Microscopy/C&S if indicated - Collect Date/Time: 10/01/2024 20:01 [facility] ID: [id number] [address] [place] [address], [id number] LOINC: 67789-2 Test Value Unit Reference Range Code Code System Flag UR SOURCE VOIDED 03047-6 LOINC COLOR YELLOW YELLOW 5778-6 LOINC CLARITY CLOUDY CLEAR 93609-2 LOINC SPEC GRAVITY 1.025 1.000-1.030 5811-5 LOINC PH 7.0 5.0 - 6.5 5803-2 LOINC LEUK EST TRACE NEGATIVE 5799-2 LOINC A NITRATE NEGATIVE NEGATIVE PROTEIN NEGATIVE NEGATIVE 5804-0 LOINC GLUCOSE NEGATIVE NEGATIVE 71959-3 LOINC KETONES NEGATIVE NEGATIVE 59158-8 LOINC UROBILINOGEN 0.2 0.2 - 1.0 5818-0 LOINC BILIRUBIN NEGATIVE NEGATIVE 61202-4 LOINC BLOOD NEGATIVE NEGATIVE 14846-3 LOINC WBC 0-2 0 - 2 50111-9 LOINC RBC 0-2 0 - 2 68753-2 LOINC SQ EPITHELIAL MANY RARE-FEW A BACTERIA FEW NONE SEEN 02638-3 LOINC MUCUS MODERATE NONE SEEN 8247-9 LOINC A YEAST NOT PRESENT NOT PRESENT 31308-0 LOINC TRICHOMONAS NOT PRESENT NOT PRESENT 98741-8 LOINC SPERMATOZOA NOT PRESENT NOT PRESENT 25213-0 LOINC CASTS NOT PRESENT 39436-0 LOINC CRYSTALS NOT PRESENT 48221-5 LOINC CULTURE? NO 8251-1 LOINC DIAGNOSIS N/A URINE DRUG SCREEN 12 PANEL R APID - Collect Date/Time: 10/01/2024 20:01 [facility] ID: [id number] [address] [place] [phone] LOINC: Test Value Unit Reference Range Code Code System Flag THC POSITIVE A PCP NEGATIVE COCAINE NEGATIVE 92656-3 LOINC METHAMPHETAMINES NEGATIVE OPIATES NEGATIVE AMPHETAMINES NEGATIVE 57288-6 LOINC BENZO NEGATIVE 80198-1 LOINC TCA NEGATIVE METHADONE NEGATIVE BARBITUATES NEGATIVE OXYCODONE NEGATIVE TEST URINE - Colle ct Date/Time: 10/01/2024 20:00 [facility] ID: [id number] [address] [place] [address], [phone] LOINC: Test Value Unit Reference Range Code Code System Flag URINE PREG NEGATIVE Social History Type Status Start Date End Date Code Code Syst em Smoking History Current every day smoker [id number] SNOMED CT Sex Female Hospital Discharge Instructions Should you have any questions prior to discharge, please contact a member of your healthcare team. If you have left the hospital and have any questions, please contact your primary care physician. Reason For Referral No Data Found Plan of Treatment No Data Found Encounters Encounter Diagnosis Start Date Code Code Sys tem Post-traumatic stress disorder, unspecified 10/01/2024 SNOMED-CT Personal Care Team Section Performer Name Performer Role Active Date Inactive MARA Arguello PCP - Primary care physician
== END 2025-02-22 14:16 | disposition home or self-care (01) ==
PROVIDERS: PCP Family Medicine; Visit Provider Internal Medicine
DX: E03.9 Hypothyroidism, unspecified (principal); R06.83 Snoring; G47.10 Hypersomnia, unspecified; Z72.821 Inadequate sleep hygiene
CPT/HCPCS: 36415; 84480

== ENCOUNTER 2025-03-01 14:08 | Emergency (ER) | payer OTHER, SELFPAY ==
--- NOTE | ~2025-03-01 | XR_ITS ---
EXAMINATION: XR shoulder RT min 2V, 03/01/2025 14:30 ENVIRONMENTAL SCIENTIST HISTORY: Fall, Rt. anterior shoulder pain COMPARISON: No comparisons available. Findings: No acute fracture or malalignment. No significant degenerative changes. Soft tissues unremarkable. Impression: No acute fracture or malalignment. Reviewed, dictated and finalized at location P. RONMENTAL SCIENTIST Impression: No acute fracture or malalignment.
--- NOTE | ~2025-03-01 | XR_ITS ---
EXAMINATION: XR clavicle RT, 03/01/2025 14:30 SENIOR PRODUCT ENGINEER HISTORY: Fall, Rt. anterior shoulder pain COMPARISON: No comparisons available. Findings: No acute fracture or malalignment. No significant degenerative changes. Soft tissues unremarkable. Impression: No acute fracture or malalignment. Reviewed, dictated and finalized at location P. OR PRODUCT ENGINEER Impression: No acute fracture or malalignment.
[2025-03-01 14:08] VITALS: BP 142/83; PULSE 91; RESP 16; TEMP 36.8; O2SAT 97
--- NOTE | 2025-03-01 14:58 | ED.UPPEXIN ---
HPI - Extremity Injury (Upper) General Chief Complaint: Extremity Injury, Upper Stated Complaint: shoulder pain/injury Time Seen by Provider: 03/01/25 14:20 Source: patient Mode of arrival: ambulatory Limitations: no limitations History of Present Illness HPI narrative: This is a 34-year-old female with no significant past medical history presents with right shoulder pain after she had a fall earlier today causing pain tenderness with decreased range of motion after the fall pain level about a 4/10 no other injuries noted no neurological deficits no radiation of her pain. MD complaint: injury to: right Onset (ago): hour(s) Other Extremity Injury: Right: shoulder (Pain and tenderness with palpation) Other injuries: none Handedness: right Severity: moderate Severity scale (1-10): 4 Relieving factors: cold therapy Context: fall Associated symptoms: denies other symptoms Related Data Home Medications ?Medication ?Instructions ?Recorded ?Confirmed ?Last Taken ?Type desvenlafaxine succinate 100 mg 100 mg PO DAILY 03/12/24 09/11/24 Unknown History tablet,extended release 24 hr (Pristiq) desvenlafaxine succinate 25 mg 100 mg PO DAILY 03/12/24 09/11/24 Unknown History tablet,extended release 24 hr (Pristiq) lorazepam 1 mg tablet (Ativan) 1 mg PO TID PRN 03/12/24 09/11/24 Unknown History methylphenidate HCl 18 mg 18 mg PO QAM 03/12/24 09/11/24 Unknown History tablet,extended release 24 hr (Concerta) methylphenidate HCl 54 mg 54 mg PO QAM 03/12/24 09/11/24 Unknown History tablet,extended release 24 hr (Concerta) oxcarbazepine 300 mg tablet 300 mg PO DAILY 03/12/24 09/11/24 Unknown History Allergies Allergy/AdvReac Type Severity Reaction Status Date / Time No Known Drug Allergies Allergy Mild Unknown Verified 09/11/24 13:05 Review of Systems Review of Systems: All systems reviewed & are unremarkable except as noted in HPI and below PMFSH Past Medical History Medical History Depression Vaginal delivery x2 Thyroid disorder Acid reflux Anxiety Surgical History Surgical History [place] teeth removed Family History Family History Father Family history of thyroid disease Hypertension Diabetes mellitus Mother Depression Sibling Asthma Diabetes mellitus Grandparent Rectal cancer Social History Social History Smoking status: Former smoker Tobacco type: e-cigarettes/vaping Alcohol intake: never Substance use: former Substance use type: marijuana Lack of Transportation: No Lack of Food: Never True Current Housing: I Have Housing Concerned About Future Housing: No Difficulty Paying Gas/Electric Bills: No Difficulty Paying for Meds: No Currently Unemployed: No Education: High School Diploma/GED Difficulty w/ Childcare or Family Care: No Living arrangements: with family Occupation/Education: occupation Gender identity (if verbalized by the patient): Female Sexual Orientation (if Verbalized by the Patient): Straight or Heterosexual Spiritual care concerns: No Agree to blood products: Yes Exam Const: General: healthy appearing and no acute distress Nutritional Appearance: well nourished and obese Orientation/consciousness: patient oriented x3 Chest: Chest palpation & inspection: normal inspection of the chest Resp: Effort & Inspection: normal respiratory effort Auscultation: clear to auscultation bilaterally Cardio: Rate: regular rate Rhythm: regular rhythm GI: GI Palp: Yes Soft to palpation Auscultation: normal bowel sounds Skin: General skin exam: normal color Rashes: no rashes Wounds: no wounds Neuro: General: patient oriented x3, moves all extremities and no meningeal signs Extrem: Other: Right shoulder tenderness and decreased range of motion with a a brisk radial pulse under Course Course Emergency Course: Medical decision making and Leif of: The patient was evaluated by myself in the emergency department. History obtained from the patient who is in independent historian physical exam performed with his binders. X-rays performed showed no acute fractures of the shoulder or clavicle. Repeat assessment: Patient is doing well on repeat exam with no acute distress Symptoms stable since arrival to the emergency department Repeat vitals are stable Patient agrees with discussion and after shared medical decision-making and agrees with discharge All questions answered to patient's satisfaction Advised follow-up within 3 to 5 days with her primary care physician. Vital Signs Vital signs: Vital Signs Temperature 36.8 C 03/01/25 14:08 Pulse Rate 91 03/01/25 14:08 Respiratory Rate 16 03/01/25 14:08 Blood Pressure 142/83 H 03/01/25 14:08 Pulse Oximetry 97 03/01/25 14:08 Oxygen Delivery Room Air 03/01/25 14:08 Temperature 36.8 C 03/01/25 14:08 Pulse Rate 91 03/01/25 14:08 Respiratory Rate 16 03/01/25 14:08 Blood Pressure 142/83 H 03/01/25 14:08 Pulse Oximetry 97 03/01/25 14:08 Oxygen Delivery Room Air 03/01/25 14:08 [facility] Differential Diagnosis Differential Diagnosis: Rotator cuff strain Imaging Data Radiologist's impression: ITS Impressions Clavicle X-Ray 03/01/25 14:48 Impression: No acute fracture or malalignment. Shoulder X-Ray 03/01/25 14:48 Impression: No acute fracture or malalignment. Critical Care Time Critical Care Time Critical Care Time: No Discharge Plan Discharge Clinical Impression: Right shoulder strain Patient Disposition: Home Condition: Stable Instructions: Antibiotic Form, Rotator Cuff Injury (ED) Additional Instructions: Advised Tylenol or Motrin as needed continue ice to affected area and follow-up with primary care physician within 3 to 5 days for further evaluation and treatment. Patient Language: Latvian Prescriptions: No Action fluticasone propionate [Flonase Allergy Relief] 50 mcg/actuation spray,suspension 1 spray intranasal BID Qty: 16 0RF Rx Instructions: administer into each nostril desvenlafaxine succinate [Pristiq] 25 mg tablet extended release 24 hr 100 mg PO DAILY desvenlafaxine succinate [Pristiq] 100 mg tablet extended release 24 hr 100 mg PO DAILY methylphenidate HCl [Concerta] 54 mg tablet extended release 24hr 54 mg PO QAM methylphenidate HCl [Concerta] 18 mg tablet extended release 24hr 18 mg PO QAM oxcarbazepine 300 mg tablet 300 mg PO DAILY lorazepam [Ativan] 1 mg tablet 1 mg PO TID PRN dexamethasone 1 mg tablet 1 mg PO ONCE Qty: 1 0RF cholecalciferol (vitamin D3) 1,250 mcg (50,000 unit) tablet 1,250 mcg PO WEEKLY Qty: 12 0RF levothyroxine [Levo-T] 175 mcg tablet 175 mcg PO DAILY Qty: 90 2RF Follow-up/Referrals: Anthony Terrell MD [Primary Care Provider, Internal Medicine] Time of Disposition: 15:02
== END 2025-03-01 15:05 | disposition home or self-care (01) ==
LOC: CHSED 15:08
PROVIDERS: Emergency Provider Emergency Medicine; PCP Family Medicine
DX: S46.911A Strain of unspecified muscle, fascia and tendon at shoulder and upper arm level, right arm, initial encounter (principal); W19.XXXA Unspecified fall, initial encounter; Z87.891 Personal history of nicotine dependence
CPT/HCPCS: 73000; 73030; 99283; A4565